=== PATIENT | female | born 1945 | race Caucasian/White ===

== ENCOUNTER 2017-03-24 16:46 | Inpatient (IN) | payer OTHER, BC ==
[~2017-03-24] VITALS: Ht 157.5 cm; Wt 56.0 kg
[~2017-03-24 16:46] MED LIST: ASPIR-LOW81 M1 PO; ATIVAN1 MG PO; DIOVAN160 MG PO; LEVOTHYROXINE0.1 M2 PO; LIPI10 PO; METOPROLOL TART25 M1 PO; PRI20 PO
[2017-03-24 20:23] LABS: UA SPECIFIC GRAVITY <=1.005 (1.005-1.035); microscopic required? YES; urine erythrocyte TRACE (NEGATIVE)
[2017-03-24 20:34] LABS: BASOPHIL % 0.4 % (0-2); PLATELET COUNT 255 x10^3mcL (130-400); RED CELL DISTRIBUTION WIDTH 13.3 % (11.5-14.5)
[2017-03-24 20:38] LABS: CALCIUM 8.7 mg/dL (8.5-10.1); CARBON DIOXIDE 25.5 mmol/L (21-32); POTASSIUM SERUM 4.2 mmol/L (3.5-5.1)
[2017-03-24 20:48] LABS: ALBUMIN 3.6 g/dL (3.4-5.0); BILIRUBIN TOTAL 0.23 mg/dL (0.20-1.00); MAGNESIUM 1.9 mg/dL (1.8-2.4); T4(THYROXINE) 9.7 ug/dL (4.7-13.3); TOTAL PROTEIN, SERUM 7.2 g/dL (6.4-8.2)
[2017-03-24 20:54] LABS: AMPHETAMINE QUAL UR NONE DETECTED (NEG <=1000)
[2017-03-24 23:13] VITALS: BP 185/86
[2017-03-25] VITALS (7 sets, daily range): BP systolic 118–164; BP diastolic 66–80
[2017-03-25] MEDS ORDERED: ATELVIA PO (00:31)
[2017-03-25 07:04] LABS: BASOPHIL % 0.7 % (0-2); PLATELET COUNT 224 x10^3mcL (130-400); RED CELL DISTRIBUTION WIDTH 13.3 % (11.5-14.5)
[2017-03-25 07:16] LABS: CALCIUM 7.8 mg/dL (8.5-10.1); CARBON DIOXIDE 23.9 mmol/L (21-32); POTASSIUM SERUM 3.6 mmol/L (3.5-5.1)
[2017-03-26 05:37] VITALS: BP 134/75
[2017-03-26 06:34] LABS: BASOPHIL % 0.7 % (0-2); PLATELET COUNT 233 x10^3mcL (130-400); RED CELL DISTRIBUTION WIDTH 13.1 % (11.5-14.5)
[2017-03-26 07:17] LABS: CALCIUM 7.9 mg/dL (8.5-10.1); CARBON DIOXIDE 23.5 mmol/L (21-32); CHLORIDE SERUM 112 mmol/L (98-107); CREATININE SERUM 0.8 mg/dL (0.6-1.0); GFR1 > 60 mL/min; GLUCOSE SERUM 81 mg/dL (74-106); PHOSPHOROUS 3.2 mg/dL (2.5-4.9); POTASSIUM SERUM 4.1 mmol/L (3.5-5.1); SODIUM SERUM 146 mmol/L (136-145)
[2017-03-26 09:42] VITALS: BP 123/68
[2017-03-26 09:49] VITALS: BP 123/68
[2017-03-26] MEDS ORDERED: NORVASC2.5 MG PO (21:09)
== END 2017-03-26 18:00 | disposition home or self-care (01) | DRG 308 ==
LOC: ED 16:46 → DU 21:52
PROVIDERS: Emergency Medicine; ADMIT Family Medicine
DX: I44.1 Atrioventricular block, second degree (principal); N17.0 Acute kidney failure with tubular necrosis; K21.9 Gastro-esophageal reflux disease without esophagitis; R73.03 Prediabetes; E78.00 Pure hypercholesterolemia, unspecified; I10 Essential (primary) hypertension; D64.9 Anemia, unspecified; E03.9 Hypothyroidism, unspecified; F41.9 Anxiety disorder, unspecified; E78.5 Hyperlipidemia, unspecified; Z88.6 Allergy status to analgesic agent; Z88.5 Allergy status to narcotic agent; Z91.048 Other nonmedicinal substance allergy status; Z90.49 Acquired absence of other specified parts of digestive tract; Z90.10 Acquired absence of unspecified breast and nipple; Z82.49 Family history of ischemic heart disease and other diseases of the circulatory system; Z82.3 Family history of stroke; Z82.69 Family history of other diseases of the musculoskeletal system and connective tissue
CPT/HCPCS: 82962; 83880; J1885; J2001; J2550; J2916; J7030; Q0092